=== PATIENT | female | born 1945 | race Caucasian/White ===

== ENCOUNTER → 2017-04-14 | Day surgery (SDC) | payer MEDICARE ==
[~2017-04-14] VITALS: Ht 160 cm; Wt 68.0 kg
[~2017-04-14] MED LIST: 0.9% Sodium Chloride 1,000 ML IV SCH; ADV250INH IH; ALBU8.5H2 INHALATION; ASCO500C6 PO; DXPN25C PO; LEVO50TA6 PO; MULT-1018 PO; OMEG-38 PO; SUMA50TA31 PO; Sodium Chloride LOK Flush 10 mL Syringe IV PRN; fentaNYL-PF 50 mCg/mL 2 mL Inj IVPUSH PRN
[2017-04-14 11:52] VITALS: BP 143/90; PULSE 73; RESP 20; O2SAT 95
[2017-04-14 12:51] VITALS: BP 132/76; PULSE 66; RESP 17; O2SAT 97
[2017-04-14 13:01] VITALS: BP 124/77; PULSE 66; RESP 17; O2SAT 95
[2017-04-14 13:11] VITALS: BP 126/81; PULSE 70; RESP 17; O2SAT 96
--- NOTE | 2017-04-14 13:59 | ENDO ---
[address] [address] ENDOSCOPY PROCEDURE PATIENT: ARABELLA TAYLOR : 1945 MR#: [id number] ADMIT: 04/14/2017 JOB ID: [id number] DATE OF SERVICE: 04/14/2017 TYPE OF OPERATION: Colonoscopy with snare polypectomy. PREOPERATIVE DIAGNOSIS(ES): Family history of colon cancer. POSTOPERATIVE DIAGNOSIS(ES): 1. There was a 4 mm rectal polyp, removed by cold snare polypectomy. 2. Small internal hemorrhoids. ANESTHESIA: Fentanyl 75 mcg, Versed 4 mg IV administered. COMPLICATION: None. ESTIMATED BLOOD LOSS: Minimal. DESCRIPTION OF PROCEDURE: After risks and benefits explained to the patient informed consent was obtained. After anesthesia administered, colonoscope was then inserted from the rectum to cecum. Mucosa carefully examined. Prep of the patient was suboptimal. After procedure done, scope withdrawn, procedure terminated. FINDINGS: Upon inspection of the anus, no masses, hemorrhoids, ulcers, or fissures that were seen throughout the entire examination. There was quite a bit of liquid stool that was seen throughout the entire colon which was suctioned. There was a rectal polyp that was seen, 4 mm, removed by cold snare polypectomy. Retroflexion showed small internal hemorrhoids. IMPRESSION: 1. Small internal hemorrhoids. 2. A 4 mm rectal polyp, removed by cold snare polypectomy. RECOMMENDATIONS: Await pathology results. Repeat colonoscopy in five years with a two-day prep. Follow up with GI clinic as needed.
== END | disposition home or self-care (01) ==
LOC: END 00:25
PROVIDERS: ATTEND Internal Medicine Gastroenterology
DX: Z12.11 Encounter for screening for malignant neoplasm of colon (principal); Z80.0 Family history of malignant neoplasm of digestive organs; D12.8 Benign neoplasm of rectum; K64.8 Other hemorrhoids; E03.9 Hypothyroidism, unspecified; J45.909 Unspecified asthma, uncomplicated; M51.36 Other intervertebral disc degeneration, lumbar region; Z90.710 Acquired absence of both cervix and uterus
CPT/HCPCS: 45385; G0500; J2250; J3010; J7030